=== PATIENT | female | born 1975 ===

== ENCOUNTER 2017-11-30 22:37 | Emergency (ER) | payer SELFPAY ==
[~2017-11-30] VITALS: Ht 170.2 cm; Wt 81.8 kg
[2017-11-30 22:41] VITALS: Ht 170.2 cm; Wt 81.8 kg
[2017-12-01] MEDS ORDERED: BUTALB-APAP-CA1 EACH PO (00:02)
[2017-12-01 00:29] VITALS: BP 124/77
== END 2017-12-01 00:30 | disposition home or self-care (01) ==
LOC: D.ER 22:37
DX: M45.9 Ankylosing spondylitis of unspecified sites in spine (principal)